=== PATIENT | male | born 1995 | race African-American/Black ===

== ENCOUNTER 2020-03-18 13:00 | Emergency (ER) | payer OTHER, MEDICAID, SELFPAY ==
--- NOTE | 2020-03-18 13:07 | ED_ITS ---
HPI - Ear Problem General Chief complaint: Urogenital-Male Stated complaint: poss rt ear infection Time Seen by Provider: 03/18/20 13:06 Source: patient Mode of arrival: Ambulatory Limitations: no limitations History of Present Illness HPI Narrative: This is a 24-year-old male comes to the emergency department complaint of right ear fullness. Patient states mildly painful. No fevers. No cold cough or congestion. No drainage. Patient has not had any trauma. Patient is also concerned about STI. He states that 2 years ago his girlfriend was tested positive for Trichomonas she was treated but he was not, he was then evaluated a year ago was positive but was unable to case picker prescription and have it filled secondary to his personal situation. Patient states they continued to be sexually active, occasionally will have pain with urination or ejaculation but has not noticed any drainage or blood in the ejaculate. Patient denies any testicular pain. Denies any rashes or skin changes. Patient denies any other current medical issues but is taking Suboxone daily. No recent surgeries. No allergies to medications. Does vape tobacco, occasional alcohol. No recent illicit use. Related Data Allergies Allergy/AdvReac Type Severity Reaction Status Date / Time No Known Drug Allergies Allergy Verified 03/18/20 13:16 Review of Systems Review of Systems ROS Unobtainable: All systems reviewed & are unremarkable except as noted in HPI and below Patient History Social History Smoking Status: Current every day smoker Exam Narrative Exam Narrative: GEN: well nourished, well appearing male, alert and oriented x 3, patient appears to be in mild distress. HEENT: Atraumatic, pupils are equal round reactive to light, extraocular movements are intact, nares are clear, left TM is are clear with no fluid, the right TM shows a loss of light reflex, there is no bulge, there is some mild centralized erythema but the outer edge is white with a small amount of fluid behind the ear. Throat is clear without any exudates, erythema, tonsillar enlargement or uvular deviation HEART: Regular rate and rhythm without murmur, clicks, rubs. No carotid bruits, pulses are equal in upper and lower extremities LUNGS:Lungs clear to auscultation, no wheezes, rales, crackles, chest moves symm etrically ABD:bowel sounds normal, soft, non-tender, no guarding, rebound, rigidity, no masses noted, no hepatosplenomegaly :No CVA tenderness. Male: normal external examination, patient is uncircu mcised, no penile discharge or lesions, testicles non-tender, cremasteric reflex intact, no inguinal hernias noted. MSCL: Full range of motion, normal gait NEURO:CN 2-12 intact, sensation normal. Initial Vital Signs Initial Vital Signs: Vital Signs Temperature 98.3 F 03/18/20 13:16 Pulse Rate 108 H 03/18/20 13:16 Respiratory Rate 18 03/18/20 13:16 Blood Pressure 136/78 03/18/20 13:16 Pulse Oximetry 98 03/18/20 13:16 Course Orders Ordered: ED Orders 03/18/20 13:20 Chlamydia Gonorrhea PCR -URINE Stat Urinalysis and Microscopic Stat Discontinued Medications Azithromycin (Zithromax) 1,000 mg PO NOW ONE Stop: 03/18/20 13:52 Last Admin: 03/18/20 14:05 Dose: 1,000 mg Documented by: JOVI Ceftriaxone Sodium (Rocephin) 250 mg IM NOW ONE Stop: 03/18/20 13:52 Last Admin: 03/18/20 14:17 Dose: 250 mg Documented by: JOVI Metronidazole (Metronidazole) 2,000 mg PO NOW ONE Stop: 03/18/20 13:54 Last Admin: 03/18/20 14:05 Dose: 2,000 mg Documented by: JOVI Ondansetron HCl (Zofran Odt) 4 mg SL NOW ONE Stop: 03/18/20 13:54 Last Admin: 03/18/20 14:05 Dose: 4 mg Documented by: JOVI Vital Signs Vital signs: Vital Signs - 8 hr 03/18/20 13:16 03/18/20 14:10 Temperature 98.3 F Pulse Rate 108 H 97 H Respiratory Rate 18 16 Blood Pressure 136/78 Blood Pressure [Left Arm] 139/84 Pulse Oximetry 98 100 Medical Decision Making Lab Data Labs: Lab Results 03/18/20 03/18/20 Range/Units 13:20 13:20 Urine Color Yellow Urine Appearance Clear Urine pH 6.5 (4.5-8.0) Ur Specific [place] 1.020 (1.000-1.035) Urine Protein Negative (Negative) Urine Glucose (UA) Negative (Negative) g/dL Urine Ketones Trace H (NEGATIVE) Urine Occult Blood Negative (Negative) Urine Nitrate Negative (Negative) Urine Bilirubin Negative (NEGATIVE) Urine Urobilinogen 1.0 (0.2) E.U./dL Ur Leukocyte Esterase Negative (NEGATIVE) Urine RBC None seen (0-5/HPF) Urine WBC 0-1/hpf (0-5/HPF) Ur Squamous Epith Cells 0-1 /hpf (0-5/HPF) Urine Bacteria None seen (None) Ur Culture Indicated? Cult not indicated Ur Chlamydia DNA (PCR) Not detected N gonorrhoeae DNA (PCR) Not detected MDM Narrative Medical decision making narrative: Patient has some changes with loss of light reflex but there is some centralized erythema but not the entire TM but does not look obviously infected. Patient is also concerned about STI, patient does not wish to wait for results. They have been tested in the past and been positive for at least Trichomonas and did not receive treatment so went ahead and treated for gonorrhea, chlamydia and Trichomonas at this time. Also discussed with patient they need recheck, as well as evaluation for HIV and hepatitis C. Discharge Plan Departure Patient Disposition: Home Clinical Impression: Acute pain of right ear, Concern about STD in male without diagnosis Discharge Date/Time: 03/18/20 14:43 Instructions: Facts About Sexually Transmitted Infections Activity Restrictions/Additional Instructions: Follow-up with the health department or primary care for recheck after treatment. It is also recommended that you have follow-up for check for HIV and hepatitis C as these are infections that can travel with other sexually transmitted inf ections. Avoid any sexual activity for a week after treatment. Also your partner needs to be tested and treated. If only 1 partner is tested and treated the infection can be transmitted again. Return for fevers, abdominal pain, testicular pain, persistent symptoms. Or if you are having any pain increasing in your ear, swelling of her face or ear or other new or concerning symptoms.
[2020-03-18 13:16] VITALS: BP 136/78; PULSE 108; RESP 18; TEMP 36.8; O2SAT 98; BMI 27.3
[2020-03-18 13:26] LABS: Bacteria Urine None Seen; RBC Urine None Seen (0-5/HPF)
[2020-03-18 13:29] LABS: Appearance Urine UA CLEAR; Bilirubin Urine UA NEGATIVE (NEGATIVE); Color Urine UA YELLOW; Glucose Urine UA NEGATIVE (Negative); Ketones Urine UA TRACE (NEGATIVE); Leukocyte Esterase Urine UA NEGATIVE (NEGATIVE); Nitrite Urine UA NEGATIVE (Negative); Occult Blood Urine UA NEGATIVE (Negative); Protein Urine UA NEGATIVE (Negative); pH Urine UA 6.5 (4.5-8.0)
[2020-03-18 13:43] LABS: Culture Indicated Urine Cult Not Indicated; Squamous Epithelial Cell Urine 0-1 /HPF (0-5/HPF); WBC Urine 0-1/HPF (0-5/HPF)
--- NOTE | 2020-03-18 13:46 | PC.NURSE ---
exam by dr kwan.
[2020-03-18] MEDS: AZITHROMYCIN 250 MG TABLET 1000 MG PO (14:05)
[2020-03-18] MEDS: metroNIDAZOLE 500 MG TABLET 2000 MG PO (14:05)
[2020-03-18] MEDS: ONDANSETRON 4 MG ODT SL (14:05)
[2020-03-18 14:10] VITALS: BP 139/84; PULSE 97; RESP 16; O2SAT 100
[2020-03-18] MEDS: cefTRIAXone 500 MG VIAL 250 MG IM (14:17)
[2020-03-18 14:54] LABS: Urine N gonorrhoeae NOT DETECTED
[2020-03-18 14:58] LABS: Urine Chlamydia NOT DETECTED
== END 2020-03-18 14:43 | disposition home or self-care (01) ==
PROVIDERS: Emergency Provider Emergency Medicine
DX: H92.01 Otalgia, right ear (principal); Z20.2 Contact with and (suspected) exposure to infections with a predominantly sexual mode of transmission; Z71.1 Person with feared health complaint in whom no diagnosis is made
CPT/HCPCS: 81001; 87491; 87591; 96372; 99283; J0696